=== PATIENT | female | born 1930 | race Caucasian/White ===

== ENCOUNTER → 2017-03-02 | Outpatient (CLI) | payer MEDICARE, BC ==
[2017-03-02 13:10] LABS: BASO % 0.3 % (0.0-1.0); EOS # 0.2 K/mm3 (0.0-0.50); EOS % 2.7 % (0.0-3.0); LARGE UNSTAINED CELL # 0.1 K/mm3 (0.0-0.4); LARGE UNSTAINED CELL % 2.1 % (0.0-4.0); LYMPH # 1.4 K/mm3 (1.5-4.5); LYMPH % 20.4 % (24.0-44.0); MEAN CORPUSCULAR HEMOGLOBIN 31.5 pg (27.0-33.0); MEAN CORPUSCULAR HGB CONC 33.4 g/dl (32.0-36.5); MEAN CORPUSCULAR VOLUME 94.5 fl (80.0-96.0); MONO # 0.3 K/mm3 (0.0-0.8); MONO % 5.5 % (0.0-5.0); NEUTROPHILS # 4.2 K/mm3 (1.8-7.7); PLATELET COUNT, AUTOMATED 219 k/mm3 (150-450); RED CELL DISTRIBUTION WIDTH 12.6 % (11.5-14.5)
[2017-03-02 13:42] LABS: ALBUMIN 3.9 GM/DL (3.2-5.2); ALBUMIN/GLOBULIN RATIO 1.08 (1.00-1.93); BILIRUBIN,TOTAL 0.4 MG/DL (0.2-1.0); CALCIUM LEVEL 9.2 MG/DL (8.8-10.2); CREATININE FOR GFR 1.04 MG/DL (0.55-1.02); GLOMERULAR FILTRATION RATE 53.5 (>32); POTASSIUM SERUM 4.9 MEQ/L (3.5-5.1); TOTAL PROTEIN 7.5 GM/DL (6.4-8.2)
== END ==
LOC: M WUC 10:10
PROVIDERS: ATTEND Nurse Practitioner Family
DX: I10 Essential (primary) hypertension (principal)

== ENCOUNTER → 2018-04-15 | Outpatient (CLI) | payer MEDICARE, BC ==
[2018-04-15 13:20] LABS: ALBUMIN 3.5 GM/DL (3.2-5.2); ALBUMIN/GLOBULIN RATIO 0.95 (1.00-1.93); ALKALINE PHOSPHATASE 67 U/L (45-117); ALT/SGPT 25 U/L (12-78); ANION GAP 7 MEQ/L (8-16); AST/SGOT 10 U/L (7-37); BILIRUBIN,TOTAL 0.4 MG/DL (0.2-1.0); BLOOD UREA NITROGEN 25 MG/DL (7-18); CALCIUM LEVEL 8.4 MG/DL (8.8-10.2); CARBON DIOXIDE LEVEL 26 MEQ/L (21-32); CHLORIDE LEVEL 110 MEQ/L (98-107); CREATININE FOR GFR 1.23 MG/DL (0.55-1.30); GLUCOSE, FASTING 100 MG/DL (70-100); POTASSIUM SERUM 4.7 MEQ/L (3.5-5.1); SODIUM LEVEL 143 MEQ/L (136-145); TOTAL PROTEIN 7.2 GM/DL (6.4-8.2)
== END ==
LOC: M WUC 09:48
DX: I10 Essential (primary) hypertension (principal)
CPT/HCPCS: 80053

== ENCOUNTER → 2018-05-24 | Outpatient (CLI) | payer MEDICARE, BC ==
[2018-05-24 13:43] LABS: CHOLESTEROL LEVEL 283 MG/DL (<200); CHOLESTEROL RISK RATIO 7.861 (<5); HDL CHOLESTEROL 36 MG/DL (>40); LDL CHOLESTEROL 186 MG/DL (<100); NON-HDL-C 247 MG/DL; TRIGLYCERIDES LEVEL 305 MG/DL (<150)
== END ==
LOC: M WUC 10:53
DX: E78.2 Mixed hyperlipidemia (principal)
CPT/HCPCS: 80061

== ENCOUNTER → 2018-05-25 | Outpatient (CLI) | payer MEDICARE, BC | LOC: M RAD 12:52 | DX: I65.23 Occlusion and stenosis of bilateral carotid arteries (principal); H34.232 Retinal artery branch occlusion, left eye | CPT/HCPCS: 93880 ==

== ENCOUNTER → 2019-05-08 | Outpatient (REF) | payer MEDICARE, BC ==
[2019-05-08 12:22] LABS: CALCIUM LEVEL 9.5 MG/DL (8.8-10.2); CREATININE FOR GFR 1.28 MG/DL (0.55-1.30); GLOMERULAR FILTRATION RATE 41.9 (>32); POTASSIUM SERUM 4.9 MEQ/L (3.5-5.1)
== END ==
LOC: M SFHCPLAZ 09:59
PROVIDERS: ATTEND Family Medicine
DX: I10 Essential (primary) hypertension (principal)

== ENCOUNTER → 2019-05-08 | Outpatient (CLI) | payer MEDICARE, BC ==
--- NOTE | 2019-05-08 16:52 | REP ---
Right knee series: Six views: History: Pain. Six views of the right knee including a upright standing view shows diffuse osteopenia. No joint space narrowing is seen on the upright view. There is mild patellofemoral spur formation. There is also nonarticular spurring at the superior pole patella at the quadriceps tendon insertion. Lateral view shows evidence of a joint effusion. There is some vascular calcification. Minimal medial compartment spurring is seen. Impression: Mild osteoarthritis of the right knee. Nonarticular spurring at the quadriceps tendon insertion on the patella. Evidence of joint effusion. Electronically Signed by Willie Cordero MD 05/09/2019 09:32 A
== END ==
LOC: M WUC 11:11
PROVIDERS: ATTEND Family Medicine
DX: M17.11 Unilateral primary osteoarthritis, right knee (principal); M25.461 Effusion, right knee; M25.561 Pain in right knee
CPT/HCPCS: 36415; 73564; 80048; 82043; 90682; G0008; G0463

== ENCOUNTER → 2019-05-18 | Outpatient (REF) | payer MEDICARE, BC ==
[2019-05-18 16:02] LABS: CALCIUM LEVEL 9.3 MG/DL (8.8-10.2); CREATININE FOR GFR 1.38 MG/DL (0.55-1.30); GLOMERULAR FILTRATION RATE 38.4 (>32); POTASSIUM SERUM 4.9 MEQ/L (3.5-5.1)
== END ==
LOC: M SFHCPLAZ 14:07
PROVIDERS: ATTEND Family Medicine
DX: I10 Essential (primary) hypertension (principal)
CPT/HCPCS: 36415; 80048; G0463

== ENCOUNTER → 2019-05-20 | Outpatient (CLI) | payer MEDICARE, BC ==
--- NOTE | 2019-05-20 12:10 | REP ---
REASON: Knee pain times two weeks. There is grade 3 signal change present within a markedly truncated posterior horn of the medial meniscus. The anterior horn is within normal limits. Grade 1 and grade 2 signal changes are present in the anterior and posterior horns of the lateral meniscus. The anterior and posterior cruciate ligaments are intact. The quadriceps and patellar tendons are intact. The medial and lateral collateral ligaments are intact. The medial and lateral patellar retinacula are intact. There is advanced thinning and irregularity of all articular cartilages particularly affecting the medial compartmental articular cartilages and the patellofemoral joint cartilaginous surfaces. There is a joint effusion. Patchy T2 hypersignal is seen in the medial femoral condyle and proximal tibial metaphysis particularly medially. There is a small focal area of signal void involving the articular surface of the medial femoral condyle measuring approximately 1 cm with subtle T2 hypersignal seen abutting this superiorly. There is parapatellar plica. There is a tiny amount of fluid seen between the tendon of the medial head of the gastrocnemius muscle and the semimembranosus tendon. IMPRESSION: 1. There is a bucket-handle tear of the medial meniscus. 2. There is diffuse edema of the distal femur and proximal tibia as described above consistent with an osseous contusion. This needs to be correlated clinically. 3. Focal area of signal void in the medial femoral condyle possibly related to an age-undetermined compression fracture. This should be correlated clinically with appropriate followup. 4. There is a joint effusion and parapatellar plica. 5. Focal subchondral edema in the patella lateral facet likely secondary to chondromalacia and repeated micro trauma. 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 6. Other findings as described above. ? Electronically Signed by Galo Aguilar DO 05/20/2019 12:20 P
== END ==
LOC: M RAD 10:26
PROVIDERS: ATTEND Nurse Practitioner Family
DX: S83.211A Bucket-handle tear of medial meniscus, current injury, right knee, initial encounter (principal); X58.XXXA Exposure to other specified factors, initial encounter; Y92.9 Unspecified place or not applicable; M25.461 Effusion, right knee; M94.261 Chondromalacia, right knee

== ENCOUNTER → 2020-02-08 | Outpatient (REF) | payer MEDICARE, BC | LOC: M WUC 19:29 | PROVIDERS: ATTEND Physician Assistant | DX: R35.0 Frequency of micturition (principal) ==

== ENCOUNTER → 2020-02-22 | Outpatient (REF) | payer MEDICARE, BC | LOC: M WUC 11:56 | PROVIDERS: ATTEND Physician Assistant | DX: R35.0 Frequency of micturition (principal) ==

== ENCOUNTER → 2020-04-23 | Outpatient (CLI) | payer MEDICARE, BC ==
[2020-04-23 15:52] LABS: CALCIUM LEVEL 9.1 MG/DL (8.8-10.2); CREATININE FOR GFR 1.12 MG/DL (0.55-1.30); GLOMERULAR FILTRATION RATE 48.8 (>32); POTASSIUM SERUM 4.4 MEQ/L (3.5-5.1)
== END ==
LOC: M PLALAB 12:11
PROVIDERS: ATTEND Family Medicine
DX: I12.9 Hypertensive chronic kidney disease with stage 1 through stage 4 chronic kidney disease, or unspecified chronic kidney disease (principal); N18.3 Chronic kidney disease, stage 3 (moderate)
CPT/HCPCS: 36415; 80048; G0463